=== PATIENT | male | born 1965 | race American Indian/Alaskan Native ===

== ENCOUNTER 2018-12-25 07:01 | Day surgery (SDC) | payer BC ==
[~2018-12-25] VITALS: Ht 185.4 cm; Wt 100.3 kg
[~2018-12-25 07:01] MED LIST: BUPR150T2; HYDACE5 PO; LEVSOD100 PO; LEVSOD25; LORPSEER24; OXYACE5T PO; SILSUL1TC TOP; TRAZ100
== END 2018-12-25 09:17 | disposition home or self-care (01) ==
LOC: ORSCSDS 07:01
PROVIDERS: Internal Medicine Gastroenterology
PROC: 0DJD8ZZ Inspection of Lower Intestinal Tract, Via Natural or Artificial Opening Endoscopic (ICD-10-PCS; principal; 2018-12-25 08:15)
DX: Z12.11 Encounter for screening for malignant neoplasm of colon (principal); K64.8 Other hemorrhoids; F17.220 Nicotine dependence, chewing tobacco, uncomplicated; G47.33 Obstructive sleep apnea (adult) (pediatric); E03.9 Hypothyroidism, unspecified; E78.5 Hyperlipidemia, unspecified; Z79.899 Other long term (current) drug therapy
CPT/HCPCS: J0461; J2405; J2704; J7120

== ENCOUNTER → 2021-12-04 | Outpatient (CLI) | payer BC | END | disposition home or self-care (01) | LOC: LAB 15:05 → LAB SHORT 15:05 | DX: A49.9 Bacterial infection, unspecified (principal); L81.4 Other melanin hyperpigmentation; L82.1 Other seborrheic keratosis; D22.5 Melanocytic nevi of trunk; R20.2 Paresthesia of skin; L20.84 Intrinsic (allergic) eczema | CPT/HCPCS: 87070; 87077; 87147; 87186; 87205 ==